=== PATIENT | female | born 1950 | race Two or more races ===

== ENCOUNTER 2023-11-01 16:23 | Inpatient (IN) | payer MEDICARE, OTHER ==
[~2023-11-01] VITALS: Ht 165.1 cm; Wt 80.9 kg
[2023-11-01] MEDS ORDERED: VANCOMYCIN PER PHARMACY 0 MG IV SCH ×2 (17:00→23:00)
[2023-11-01 17:08] LABS: Basophils # (auto) 0.1 10 ^3/uL (0-0.2); Basophils % (auto) 1.3 % (0.0-2.0); Eosinophils # (auto) 0.5 10 ^3/uL (0-0.8)
[2023-11-01 17:10] VITALS: PULSE 114; RESP 29; O2SAT 97
[2023-11-01 17:10] LABS: Eosinophils % (auto) 6.2 % (0.0-7.0); Hematocrit 34.3 % (36.0-46.0); Hemoglobin 10.8 g/dL (12.2-16.2); Lymphocytes # (auto) 0.8 10 ^3/uL (0.4-5.4); Lymphocytes % (auto) 8.8 % (10.0-50.0); Mean Corpuscular Hemoglobin 26.5 pg (28.0-32.0); Mean Corpuscular Hgb Conc. 31.5 g/dL (32.0-36.0); Mean Corpuscular Volume 84.4 fL (80.0-100.0); Monocytes # (auto) 0.4 10 ^3/uL (0-1.3); Monocytes % (auto) 4.6 % (0.0-12.0); Neutrophils % (auto) 79.1 % (37.0-80.0); Red Blood Cells 4.07 10^6/uL (4.0-5.20); White Blood Cell 8.8 10^3/uL (4.4-10.8)
[2023-11-01 17:12] LABS: Red Cell Distribution Width 21.1 % (11.8-14.3)
[2023-11-01] MEDS: LABETALOL HCL 5 MG/ML 4ML SYRINGE IV ONE ×4 (17:16→20:44)
[2023-11-01 17:28] LABS: Alanine Aminotransferase 13 U/L (7-40); Alkaline Phosphatase 96 U/L (46-116); Anion Gap 6 (5-15); Aspartate Aminotransferase 20 U/L (13-40); BUN/Creatinine Ratio 14.6 (10.0-20.0); Blood Urea Nitrogen 19 mg/dL (9-23); Calcium 9.5 mg/dL (8.5-10.1); Carbon Dioxide 26 mmol/L (20-30); Chloride 109 mmol/L (98-107); Glucose 102 mg/dL (74-106); Magnesium 1.8 mg/dL (1.6-2.6); Potassium 4.6 mmol/L (3.5-5.1); Sodium 141 mmol/L (136-145)
[2023-11-01 17:29] LABS: Bilirubin, Total 0.6 mg/dL (0.2-1.0)
[2023-11-01] MEDS: PIPERACILLIN-TAZOB 3.375GM 100 ML IV ONE (17:30)
[2023-11-01] MEDS: VANCOMYCIN 1GM/200ML 200 ML IV ONE (18:00)
[2023-11-01 18:38] LABS: Erythrocyte Sedimentation Rate 28 mm/hr (0-20)
[2023-11-01 19:30] VITALS: PULSE 85; RESP 18; O2SAT 95
[2023-11-01] MEDS: HYDROcodone-ACET 5/325MG TAB PO ONE (21:06)
[2023-11-01] MEDS: FUROSEMIDE 100 MG/10ML VIAL IV ONE (22:12)
[2023-11-01] MEDS ORDERED: ACETAMINOPHEN 325 MG TAB PO PRN ×2 (23:00)
[2023-11-01] MEDS ORDERED: DEXTROSE (50%) 50ML SYRG IV PRN (23:00)
[2023-11-01] MEDS ORDERED: DOCUSATE SOD 100 MG CAP PO PRN (23:00)
[2023-11-01] MEDS ORDERED: MORPHINE SULFATE INJ 2 MG/ml SYRG IV PRN (23:00)
[2023-11-01] MEDS ORDERED: NITROGLYCERIN 0.4 MG SL TAB SL PRN (23:00)
[2023-11-01] MEDS ORDERED: ONDANSETRON HCL 4 MG/2 ML VIAL IV PRN (23:00)
[2023-11-01] MEDS: IOHEXOL 300 MG/ML 100ML BOTTLE IJ ONE (23:50)
[2023-11-02] MEDS: InsuLIN REG 1unit/0.01ml Soln (100units/ml) SC SCH (00:42)
[2023-11-02] MEDS: ACCU-CHEK COMFORT CURVE STRIP VI SCH (00:42)
[2023-11-02] MEDS: NIFEdipine ER 30 MG TAB PO ONE (00:49)
[2023-11-02] MEDS: LISINOPRIL 20 MG TAB PO ONE (00:49)
[2023-11-02] MEDS: PIPERACILLIN-TAZOB 3.375GM 100 ML IV SCH (00:50)
[2023-11-02] MEDS: MORPHINE SULFATE INJ 2 MG/ml SYRG IV PRN (02:42)
[2023-11-02 04:12] LABS: Basophils # (auto) 0.1 10 ^3/uL (0-0.2); Eosinophils # (auto) 0.5 10 ^3/uL (0-0.8); Eosinophils % (auto) 5.9 % (0.0-7.0); Hematocrit 29.8 % (36.0-46.0); Hemoglobin 9.7 g/dL (12.2-16.2); Lymphocytes # (auto) 0.7 10 ^3/uL (0.4-5.4); Lymphocytes % (auto) 7.3 % (10.0-50.0); Mean Corpuscular Hgb Conc. 32.5 g/dL (32.0-36.0); Mean Corpuscular Volume 83.2 fL (80.0-100.0); Monocytes # (auto) 0.5 10 ^3/uL (0-1.3); Monocytes % (auto) 5.2 % (0.0-12.0); Neutrophils # (auto) 7.5 10 ^3/uL (1.6-8.6); Neutrophils % (auto) 80.6 % (37.0-80.0); Red Blood Cells 3.58 10^6/uL (4.0-5.20); White Blood Cell 9.4 10^3/uL (4.4-10.8)
[2023-11-02 04:14] LABS: Red Cell Distribution Width 20.4 % (11.8-14.3)
[2023-11-02 04:32] LABS: Alanine Aminotransferase 11 U/L (7-40); Albumin 3.4 g/dL (3.2-4.8); Alkaline Phosphatase 71 U/L (46-116); Anion Gap 10 (5-15); Aspartate Aminotransferase 18 U/L (13-40); BUN/Creatinine Ratio 14.9 (10.0-20.0); Bilirubin, Total 0.8 mg/dL (0.2-1.0); Blood Urea Nitrogen 20 mg/dL (9-23); Calcium 9.2 mg/dL (8.7-10.4); Carbon Dioxide 25 mmol/L (20-30); Chloride 108 mmol/L (98-107); Glucose 112 mg/dL (74-106); Potassium 4.1 mmol/L (3.5-5.1); Sodium 143 mmol/L (136-145); Total Protein 6.1 g/dL (5.7-8.2)
[2023-11-02] MEDS: FUROSEMIDE 40 MG/4 ML VIAL IV SCH (06:06)
[2023-11-02 07:25] VITALS: PULSE 71; RESP 18; O2SAT 97
[2023-11-02] MEDS ORDERED: NIFEdipine ER 30 MG TAB PO SCH (10:00)
[2023-11-02] MEDS: ENOXAPARIN SOD 30 MG/0.3 ML SYRINGE SC SCH (10:29)
[2023-11-02] MEDS: ZINC SULFATE 220mg CAP or TAB PO SCH (10:29)
[2023-11-02] MEDS: ASCORBIC ACID 500 MG TAB PO SCH (10:30)
[2023-11-02] MEDS: NIFEdipine ER 30 MG TAB PO SCH (10:30)
[2023-11-02] MEDS: MULTIPLE VITAMIN TAB PO SCH (10:31)
[2023-11-02] MEDS: LISINOPRIL 20 MG TAB PO SCH (10:31)
[2023-11-02] MEDS ORDERED: hydrALAZINE HCL 20 MG/ML VL IV PRN (15:45)
[2023-11-02] MEDS: VANCOMYCIN 1GM/200ML 200 ML IV SCH (18:15)
[2023-11-02 19:45] VITALS: PULSE 83; RESP 18; O2SAT 97
[2023-11-02] MEDS: CARVEDILOL 3.125 MG TAB PO SCH (22:14)
[2023-11-02 23:43] VITALS: BP 128/61; PULSE 84; RESP 18; TEMP 98.2; O2SAT 96
[2023-11-03] VITALS (8 sets, daily range): BP systolic 108–137; BP diastolic 60–71; PULSE 79–95; RESP 16–20; TEMP 97.8–98.4; O2SAT 94–98
[2023-11-03] MEDS: HYDROcodone-ACET 5/325MG TAB PO PRN (00:01)
[2023-11-03] MEDS: PIPERACILLIN-TAZOB 3.375GM 100 ML IV SCH (03:19)
[2023-11-03 07:33] LABS: Alanine Aminotransferase 12 U/L (7-40); Albumin 3.3 g/dL (3.2-4.8); Alkaline Phosphatase 70 U/L (46-116); Anion Gap 3 (5-15); Aspartate Aminotransferase 14 U/L (13-40); BUN/Creatinine Ratio 16.3 (10.0-20.0); Bilirubin, Total 0.6 mg/dL (0.2-1.0); Blood Urea Nitrogen 26 mg/dL (9-23); Calcium 8.9 mg/dL (8.5-10.1); Carbon Dioxide 32 mmol/L (20-30); Chloride 105 mmol/L (98-107); Glucose 84 mg/dL (74-106); Potassium 4.1 mmol/L (3.5-5.1); Sodium 140 mmol/L (136-145); Total Protein 5.6 g/dL (5.7-8.2)
[2023-11-03 08:04] LABS: Basophils # (auto) 0.1 10 ^3/uL (0-0.2); Basophils % (auto) 1.1 % (0.0-2.0); Eosinophils # (auto) 0.6 10 ^3/uL (0-0.8); Eosinophils % (auto) 7.6 % (0.0-7.0); Hematocrit 28.3 % (36.0-46.0); Hemoglobin 9.3 g/dL (12.2-16.2); Lymphocytes # (auto) 0.8 10 ^3/uL (0.4-5.4); Lymphocytes % (auto) 9.7 % (10.0-50.0); Mean Corpuscular Hemoglobin 27.6 pg (28.0-32.0); Mean Corpuscular Volume 83.7 fL (80.0-100.0); Monocytes # (auto) 0.5 10 ^3/uL (0-1.3); Monocytes % (auto) 5.9 % (0.0-12.0); Neutrophils # (auto) 6.3 10 ^3/uL (1.6-8.6); Neutrophils % (auto) 75.7 % (37.0-80.0); Nucleated Red Blood Cells % 0.1 %; Red Blood Cells 3.39 10^6/uL (4.0-5.20); White Blood Cell 8.3 10^3/uL (4.4-10.8)
[2023-11-03 08:11] LABS: Red Cell Distribution Width 20.6 % (11.8-14.3)
[2023-11-03] MEDS: CARVEDILOL 3.125 MG TAB PO SCH (21:35)
[2023-11-04] VITALS (9 sets, daily range): BP systolic 131–172; BP diastolic 60–85; PULSE 78–100; RESP 14–20; TEMP 97.8–99.1; O2SAT 97–100
[2023-11-04 06:53] LABS: Basophils # (auto) 0.1 10 ^3/uL (0-0.2); Eosinophils # (auto) 0.6 10 ^3/uL (0-0.8); Eosinophils % (auto) 7.5 % (0.0-7.0); Hematocrit 29.1 % (36.0-46.0); Hemoglobin 9.6 g/dL (12.2-16.2); Lymphocytes # (auto) 0.8 10 ^3/uL (0.4-5.4); Lymphocytes % (auto) 10.5 % (10.0-50.0); Mean Corpuscular Hemoglobin 27.5 pg (28.0-32.0); Mean Corpuscular Hgb Conc. 33.1 g/dL (32.0-36.0); Monocytes # (auto) 0.5 10 ^3/uL (0-1.3); Monocytes % (auto) 6.1 % (0.0-12.0); Neutrophils % (auto) 74.9 % (37.0-80.0)
[2023-11-04 07:09] LABS: Potassium 3.8 mmol/L (3.5-5.1)
[2023-11-04 07:10] LABS: Calcium 9.1 mg/dL (8.5-10.1)
[2023-11-04 07:15] LABS: BUN/Creatinine Ratio 15.6 (10.0-20.0)
[2023-11-04 07:17] LABS: Albumin 3.4 g/dL (3.2-4.8); Phosphorus 5.3 mg/dL (2.4-5.1)
[2023-11-04 07:20] LABS: Red Cell Distribution Width 20.3 % (11.8-14.3)
[2023-11-04 08:30] LABS: Anisocytosis Slight; Platelet Estimate Adequate
[2023-11-04] MEDS ORDERED: DEXTROSE (50%) 50ML SYRG IV PRN (08:45)
[2023-11-04] MEDS: NIFEdipine ER 30 MG TAB PO SCH (09:43)
[2023-11-04] MEDS: LISINOPRIL 20 MG TAB PO SCH (09:46)
[2023-11-04] MEDS ORDERED: NIFEdipine ER 30 MG TAB PO SCH (10:00)
[2023-11-04] MEDS: InsuLIN REG 1unit/0.01ml Soln (100units/ml) SC SCH (11:30)
[2023-11-04] MEDS: ACCU-CHEK COMFORT CURVE STRIP VI SCH (11:30)
[2023-11-05] VITALS (8 sets, daily range): BP systolic 134–154; BP diastolic 58–78; PULSE 66–91; RESP 15–20; TEMP 97.7–98.5; O2SAT 94–99
[2023-11-05 08:07] LABS: Basophils # (auto) 0.1 10 ^3/uL (0-0.2); Basophils % (auto) 1.2 % (0.0-2.0); Eosinophils # (auto) 0.6 10 ^3/uL (0-0.8); Eosinophils % (auto) 8.1 % (0.0-7.0); Hematocrit 29.8 % (36.0-46.0); Hemoglobin 9.8 g/dL (12.2-16.2); Lymphocytes % (auto) 12.8 % (10.0-50.0); Mean Corpuscular Hemoglobin 27.3 pg (28.0-32.0); Mean Corpuscular Hgb Conc. 32.7 g/dL (32.0-36.0); Mean Corpuscular Volume 83.3 fL (80.0-100.0); Monocytes # (auto) 0.6 10 ^3/uL (0-1.3); Monocytes % (auto) 7.5 % (0.0-12.0); Neutrophils # (auto) 5.6 10 ^3/uL (1.6-8.6); Neutrophils % (auto) 70.4 % (37.0-80.0); Red Blood Cells 3.58 10^6/uL (4.0-5.20); Red Cell Distribution Width 20.4 % (11.8-14.3)
[2023-11-05] MEDS ORDERED: LEVO500T91 PO (08:07)
[2023-11-05] MEDS ORDERED: NIFE1TAB31 PO (08:09)
[2023-11-05] MEDS ORDERED: CARV-214 PO (08:09)
[2023-11-05] MEDS ORDERED: FURO1TAB31 PO (08:10)
[2023-11-05] MEDS ORDERED: POTA-36 PO (08:11)
[2023-11-05 08:41] LABS: Albumin 3.4 g/dL (3.2-4.8); Alkaline Phosphatase 64 U/L (46-116); Anion Gap 6 (5-15); Aspartate Aminotransferase 13 U/L (13-40); BUN/Creatinine Ratio 15.5 (10.0-20.0); Bilirubin, Total 0.6 mg/dL (0.2-1.0); Blood Urea Nitrogen 31 mg/dL (9-23); Calcium 8.9 mg/dL (8.5-10.1); Carbon Dioxide 32 mmol/L (20-30); Chloride 100 mmol/L (98-107); Glucose 82 mg/dL (74-106); Potassium 3.8 mmol/L (3.5-5.1); Sodium 138 mmol/L (136-145)
[2023-11-05 08:48] LABS: Alanine Aminotransferase < 9 U/L (7-40)
[2023-11-05] MEDS: SODIUM CHLORIDE 0.9% 1,000 ML IV SCH ×2 (16:11→16:12)
[2023-11-05] MEDS: PIPERACILLIN-TAZOB 3.375GM 100 ML IV SCH (16:22)
[2023-11-06] VITALS (8 sets, daily range): BP systolic 119–142; BP diastolic 48–73; PULSE 59–88; RESP 15–19; TEMP 97.3–98.7; O2SAT 96–99
[2023-11-06 07:00] LABS: Basophils # (auto) 0.1 10 ^3/uL (0-0.2); Basophils % (auto) 1.1 % (0.0-2.0); Eosinophils # (auto) 0.5 10 ^3/uL (0-0.8); Eosinophils % (auto) 5.9 % (0.0-7.0); Hematocrit 29.9 % (36.0-46.0); Hemoglobin 9.7 g/dL (12.2-16.2); Lymphocytes # (auto) 0.8 10 ^3/uL (0.4-5.4); Lymphocytes % (auto) 9.1 % (10.0-50.0); Mean Corpuscular Hgb Conc. 32.3 g/dL (32.0-36.0); Mean Corpuscular Volume 83.5 fL (80.0-100.0); Monocytes # (auto) 0.7 10 ^3/uL (0-1.3); Monocytes % (auto) 8.1 % (0.0-12.0); Neutrophils # (auto) 6.6 10 ^3/uL (1.6-8.6); Neutrophils % (auto) 75.8 % (37.0-80.0); Red Blood Cells 3.58 10^6/uL (4.0-5.20); White Blood Cell 8.8 10^3/uL (4.4-10.8)
[2023-11-06 07:02] LABS: Red Cell Distribution Width 20.1 % (11.8-14.3)
[2023-11-06 07:41] LABS: Alkaline Phosphatase 59 U/L (46-116); Anion Gap 9 (5-15); BUN/Creatinine Ratio 18.5 (10.0-20.0); Blood Urea Nitrogen 33 mg/dL (9-23); Calcium 8.9 mg/dL (8.7-10.4); Carbon Dioxide 32 mmol/L (20-30); Chloride 98 mmol/L (98-107); Glucose 77 mg/dL (74-106); Potassium 3.9 mmol/L (3.5-5.1); Sodium 139 mmol/L (136-145)
[2023-11-06 07:42] LABS: Albumin 3.2 g/dL (3.2-4.8); Aspartate Aminotransferase 14 U/L (13-40)
[2023-11-06 07:43] LABS: Bilirubin, Total 0.8 mg/dL (0.2-1.0); Total Protein 5.6 g/dL (5.7-8.2)
[2023-11-06 07:52] LABS: Alanine Aminotransferase 9 U/L (7-40)
[2023-11-06] MEDS ORDERED: FUROSEMIDE 40 MG TAB PO SCH (10:00)
[2023-11-06] MEDS: VANCOMYCIN 1GM/200ML 200 ML IV ONE (10:12)
[2023-11-06] MEDS: CIPROFLOXACIN HYDROCHLORIDE 250 MG TAB PO SCH (21:44)
[2023-11-06] MEDS ORDERED: LINEZOLID 600MG/300ML 300 ML IV SCH (22:00)
[2023-11-07] VITALS (7 sets, daily range): BP systolic 111–143; BP diastolic 58–75; PULSE 65–80; RESP 17–20; TEMP 97.9–98.9; O2SAT 97–100
[2023-11-07 08:15] LABS: Chloride 101 mmol/L (98-107); Potassium 3.9 mmol/L (3.5-5.1); Sodium 136 mmol/L (136-145)
[2023-11-07 08:16] LABS: Anion Gap 3 (5-15); Calcium 9.3 mg/dL (8.5-10.1); Carbon Dioxide 32 mmol/L (20-30)
[2023-11-07 08:21] LABS: Blood Urea Nitrogen 25 mg/dL (9-23); Glucose 81 mg/dL (74-106)
[2023-11-07 12:19] LABS: Urine Bacteria None Seen /hpf (None Seen)
[2023-11-07 12:50] LABS: Urine Blood 2+ /uL (Negative); Urine Clarity Clear (Clear); Urine Color Yellow (Yellow); Urine Protein, UAD 1+ (Negative); Urine Specific Gravity 1.019 (1.001-1.035); Urine Urobilinogen Normal (Negative); Urine WBC 7 /hpf (0 - 5)
[2023-11-07 14:15] LABS: Protein, Urine 58.3 mg/dL (0.0-11.9)
[2023-11-07 14:17] LABS: Creatinine, Urine 80.15 mg/dL (30.0-125.0); Urine Protein/Creatinine Ratio 0.73
== END 2023-11-07 18:36 | disposition home health service (06) | DRG 602 ==
LOC: ER 16:23 → EDBD 16:23 → TELE 22:55 → CENTRAL 22:55 → TELE-CENTR 11-02 23:18 → CENTRAL 11-06 19:22
PROVIDERS: ADMIT Nurse Practitioner Family; ATTEND Nurse Practitioner Family
DX: L03.115 Cellulitis of right lower limb (principal); I50.33 Acute on chronic diastolic (congestive) heart failure; N17.0 Acute kidney failure with tubular necrosis; I13.0 Hypertensive heart and chronic kidney disease with heart failure and stage 1 through stage 4 chronic kidney disease, or unspecified chronic kidney disease; I16.1 Hypertensive emergency; L03.116 Cellulitis of left lower limb; N18.32 Chronic kidney disease, stage 3b; D63.8 Anemia in other chronic diseases classified elsewhere; J45.909 Unspecified asthma, uncomplicated; T36.8X5A Adverse effect of other systemic antibiotics, initial encounter; N14.11 Contrast-induced nephropathy; T50.8X5A Adverse effect of diagnostic agents, initial encounter; E66.9 Obesity, unspecified; Z68.29 Body mass index [BMI] 29.0-29.9, adult; Z91.148 Patient's other noncompliance with medication regimen for other reason; Z87.891 Personal history of nicotine dependence; Z82.49 Family history of ischemic heart disease and other diseases of the circulatory system; Z91.199 Patient's noncompliance with other medical treatment and regimen due to unspecified reason; Y92.89 Other specified places as the place of occurrence of the external cause
CPT/HCPCS: 36415; 70450; 71045; 73701; 76775; 80048; 80053; 80069; 80202; 81001; 82565; 82570; 82962; 83036; 83605; 83735; 83880; 84156; 84484; 85025; 85652; 86141; 87040; 87077; 87186; 87205; 93005; 93306; 99291; G0378; J1815; J2543; J3490